=== PATIENT | male | born 1980 | race Caucasian/White ===

== ENCOUNTER 2017-03-01 10:30 | Emergency (ER) | payer OTHER ==
[~2017-03-01] VITALS: Ht 167.6 cm; Wt 81.1 kg
[2017-03-01 12:42] VITALS: BP 139/103
== END 2017-03-01 12:45 | disposition home or self-care (01) ==
LOC: M ED 10:30
DX: F10.10 Alcohol abuse, uncomplicated (principal); F17.200 Nicotine dependence, unspecified, uncomplicated